=== PATIENT | female | born 1985 | race Hispanic/Latino ===

== ENCOUNTER 2017-02-10 23:43 | Emergency (ER) | payer BC, OTHER ==
[2017-02-10 23:51] VITALS: BP 105/66; PULSE 64; RESP 16; TEMP 97.3; O2SAT 100
[2017-02-11 01:04] LABS: RBC URINE 5 /hpf (0-3); URINE BILIRUBIN NEGATIVE (NEGATIVE); URINE BLOOD NEGATIVE (NEGATIVE); URINE COLOR YELLOW (YELLOW); URINE GLUCOSE (UA) NEG (Normal); URINE KETONE TRACE mg/dL (NEGATIVE); URINE LEUKOCYTE ESTERASE TRACE Leu/uL (Negative); URINE PROTEIN 30 mg/dL (NEGATIVE); URINE UROBILINOGEN 0.2-1.0 mg/dL (0.2-1.0); WBC URINE 3 /hpf (0-5)
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
--- NOTE | 2017-02-11 11:49 | RAD ---
PROCEDURE: Pelvis right hip HISTORY: hip injury COMPARISON: None TECHNIQUE: Standard protocol for this study/examination. FINDINGS: There are no osseous abnormalities to suggest fracture. The pelvic ring is intact. Preserved femoral-acetabular relationship. Negative study for protrusio, subluxation or dislocation. Degenerative changes: None IMPRESSION: No acute findings related to/accounting for the clinical presentation. No preliminary report provided by emergency department personnel.
== END 2017-02-11 01:35 | disposition home or self-care (01) ==
LOC: H.ER 23:43
DX: M25.051 Hemarthrosis, right hip (principal); V03.10XA Pedestrian on foot injured in collision with car, pick-up truck or van in traffic accident, initial encounter; Y92.410 Unspecified street and highway as the place of occurrence of the external cause